=== PATIENT | male | born 1935 | race Caucasian/White ===

== ENCOUNTER → 2016-09-25 | Outpatient (CLI) | payer MEDICARE ==
[~2016-09-25] MED LIST: /WARF5TA OR; ACET65TA OR; ASPIRIN PO; CETI10TA OR; COREG PO; CRESTOR PO; GARLPOW PO; GLUC500T3 OR; KEFL500C OR; LEVOTHYROXINE PO; LISIPOW PO; MULTIVIT; NITROQUICK PO; TRAM50TA2 OR; TYLENOL PO; VITAMIN B 12 PO; VITAMIN B 6 PO
--- NOTE | 2016-09-25 14:18 | REP ---
Bilateral carotid artery duplex ultrasound: Peak flow velocity analysis: RIGHT LEFT ICA. Peak flow velocity cm/sec whole 40 occluded ICA Diastolic flow velocity cm/sec 48 occluded ICA/CCA Ratio 0.57 occluded. There is moderately heavy atheromatous plaque on the right from the bulb into the proximal ICA and ECA. However, peak flow velocities are normal. The findings indicate less than 50% narrowing. There is no significant stenosis on the right ICA. The left internal carotid artery is occluded. There is antegrade flow in the vertebral arteries bilaterally. Signed by Roberto Marin MD 09/25/2016 02:09 P
== END ==
LOC: M RAD 13:10
PROVIDERS: ATTEND Physician Assistant
DX: I65.22 Occlusion and stenosis of left carotid artery (principal)

== ENCOUNTER → 2019-10-23 | Outpatient (CLI) | payer MEDICARE ==
[~2019-10-23] MED LIST changes: -/WARF5TA OR; +COUM1TAB17 OR
--- NOTE | 2019-10-23 09:03 | REPVR ---
PROCEDURE INFORMATION: Exam: CT Head Without Contrast Exam date and time: 10/23/2019 8:43 AM Age: 84 years old Clinical indication: Altered mental status/memory loss; Additional info: Dementia TECHNIQUE: Imaging protocol: Computed tomography of the head without contrast. Radiation optimization: All CT scans at this facility use at least one of these dose optimization techniques: automated exposure control; mA and/or kV adjustment per patient size (includes targeted exams where dose is matched to clinical indication); or iterative reconstruction. COMPARISON: No relevant prior studies available. FINDINGS: Brain: There is moderate ill-defined patchy hypodensity within the bilateral cerebral periventricular white matter, consistent with chronic microvascular ischemic changes. There is moderate diffuse cerebral atrophy present, consistent with this patient's age. Ventricles: The ventricular system demonstrates moderate diffuse compensatory enlargement. Bones/joints: Unremarkable. No acute fracture. Sinuses: Visualized sinuses are unremarkable. No fluid levels. Mastoid air cells: Visualized mastoid air cells are well aerated. Soft tissues: Unremarkable. IMPRESSION: 1. No acute infarction, masses or hemorrhage is seen. No acute intracranial abnormality is identified. 2. Diffuse age-related cerebral atrophy and moderate chronic microvascular white matter ischemic changes, without evidence of an acute intracranial abnormality. 3. [place] Stroke Program Early CT Score (ASPECTS) = 10 Electronically signed by: Saturnino Cleveland On 10/23/2019 09:03:22 AM
== END ==
LOC: M RAD 08:30
PROVIDERS: ATTEND Psychiatry & Neurology Neurology
DX: G31.83 Neurocognitive disorder with Lewy bodies (principal); R41.3 Other amnesia; F02.80 Dementia in other diseases classified elsewhere, unspecified severity, without behavioral disturbance, psychotic disturbance, mood disturbance, and anxiety

== ENCOUNTER 2020-11-16 12:49 | Inpatient (IN) | payer MEDICARE ==
--- NOTE | 2020-11-16 13:29 | REP ---
INDICATION: Altered Mental Status. COMPARISON: Comparison study is from October 23, 2019. TECHNIQUE: Helical scanning is acquired. 5 mm axial images were reformatted. Coronal MPR images were generated. FINDINGS: Preliminary digital peanut butter maker radiograph is unremarkable. Bone window settings demonstrate intact bony calvarium. Visualized paranasal sinuses are clear. There is heavy vascular calcification in the distal internal carotid arteries bilaterally and some distal vertebral artery calcification is observed. No intraorbital abnormality is seen. On soft tissue window settings, there is generalized volume loss. Concordant ventricular enlargement is seen in these findings are unchanged from the October 23, 2019 study. There is extensive periventricular low-density in the supratentorial brain bilaterally consistent with fairly advanced small vessel changes. This is also unchanged from October 23, 2019 CT study. No new low-density areas seen. There is no evidence of acute infarction or intracranial hemorrhage. No extra-axial fluid collection or mass is seen. No midline shift is observed. IMPRESSION: Generalized volume loss, extensive vascular calcification and small vessel changes. No change from comparison study. No acute intracranial abnormality. <Electronically signed by Yuriy Morgan > 11/16/20 [id number]
--- NOTE | 2020-11-16 13:37 | REP ---
INDICATION: Altered Mental Status. COMPARISON: May 17, 2014. TECHNIQUE: Portable upright AP chest radiograph. FINDINGS: There is extensive calcific pleural plaquing noted bilaterally. This is present to such an extent that it could obscure a subtle infiltrate. No infiltrate is seen. Pleural plaquing appears unchanged. Pleural angles are sharp. There is a bipolar pacemaker in the right heart again noted. Median sternotomy wires are seen. The thoracic aorta is slightly tortuous. The heart is at the upper range of normal in size. Pulmonary vasculature does not appear to be increased. IMPRESSION: Borderline heart size with pacemaker. Extensive calcific pleural plaquing bilaterally consistent with prior asbestos exposure. No acute infiltrates seen. <Electronically signed by Yuriy Morgan > 11/16/20 [id number]
[2020-11-16 15:00] LABS: BASO % 0.3 % (0.0-1.0); EOS % 0.1 % (0.0-3.0); HEMATOCRIT 46.2 % (42.0-52.0); HEMOGLOBIN 15.4 g/dl (13.5-17.5); LYMPH # 1.8 10^3/uL (1.5-5.0); LYMPH % 17.1 % (24.0-44.0); MEAN CORPUSCULAR HEMOGLOBIN 31.9 pg (27.0-33.0); MEAN CORPUSCULAR HGB CONC 33.3 g/dl (32.0-36.5); MEAN CORPUSCULAR VOLUME 95.7 fl (80.0-96.0); MONO # 1.1 10^3/uL (0.0-0.8); MONO % 10.6 % (2.0-8.0); NEUTROPHILS # 7.4 10^3/uL (1.5-8.5); NEUTROPHILS % 71.5 % (36.0-66.0); PLATELET COUNT, AUTOMATED 145 10^3/uL (150-450); RED BLOOD COUNT 4.83 10^6/uL (4.30-6.10); WHITE BLOOD COUNT 10.3 10^3/uL (4.0-10.0)
[2020-11-16 15:38] LABS: ALBUMIN 3.3 GM/DL (3.2-5.2); ALT/SGPT 49 U/L (12-78); BILIRUBIN,DIRECT 0.1 MG/DL (0.0-0.2); BILIRUBIN,TOTAL 0.9 MG/DL (0.2-1.0); CK-MB VALUE MASS 1.7 NG/ML (<3.6); CPK CREATINE PHOSPHOKINASE 138 U/L (39-308); MB/CK RELATIVE INDEX 1.23 (< OR =4); TROPONIN I 0.15 NG/ML (< 0.10)
[2020-11-16] MEDS ORDERED: MECLIZINE 25 MG TABLET PO ONE (15:50)
[2020-11-16 16:28] LABS: BLOOD UREA NITROGEN 12 MG/DL (7-18); CALCIUM LEVEL 9.1 MG/DL (8.8-10.2); CARBON DIOXIDE LEVEL 21 MEQ/L (21-32); CHLORIDE LEVEL 107 MEQ/L (98-107); GLOMERULAR FILTRATION RATE > 60.0 (>35); GLUCOSE, FASTING 121 MG/DL (70-100); POTASSIUM SERUM 5.3 MEQ/L (3.5-5.1); SODIUM LEVEL 136 MEQ/L (136-145)
[2020-11-16 17:43] LABS: CK-MB VALUE MASS 2.2 NG/ML (<3.6); MB/CK RELATIVE INDEX 2.5 (< OR =4); TROPONIN I 0.16 NG/ML (< 0.10)
[2020-11-16] MEDS ORDERED: CARV25TA PO (18:29)
[2020-11-16] MEDS ORDERED: LEVO75TA4 PO (18:29)
[2020-11-16] MEDS ORDERED: ELIQ5TAB PO (18:29)
[2020-11-16] MEDS ORDERED: ROSU40TA4 PO (18:29)
[2020-11-16] MEDS ORDERED: COQ1200C PO (18:40)
[2020-11-16] MEDS ORDERED: VITMTA PO (18:40)
[2020-11-16] MEDS ORDERED: SODI3.5O3 OS (18:40)
[2020-11-16] MEDS ORDERED: PRES10CA2 PO (18:40)
[2020-11-16] MEDS ORDERED: ASPI81TA26 PO (18:40)
[2020-11-16] MEDS ORDERED: FAMO20TA PO (18:40)
[2020-11-16] MEDS ORDERED: CLAR10CA3 PO (18:40)
[2020-11-16] MEDS ORDERED: SM S160C PO (18:40)
[2020-11-16] MEDS ORDERED: NITR0.4S14 SL (18:40)
[2020-11-16] MEDS ORDERED: THIA100TA PO (18:40)
[2020-11-16] MEDS ORDERED: HOME MED LIST COMPLETE! XX SCH (18:45)
[2020-11-16] MEDS ORDERED: NITROGLYCERIN 0.4 MG SUBL TABLET SL PRN (19:25)
[2020-11-16] MEDS ORDERED: METOCLOPRAMIDE INJ 10MG/2ML VIAL (J2765 PER 1) IV PRN (19:40)
--- NOTE | 2020-11-16 19:44 | HPEPDOC ---
General Date of Admission November 16, 2020 Date of Service: Nov 16, 2020 Chief Complaint The patient is a 85-year-old male admitted with a reason for visit of N/V. History of Present Illness Mr. Rosales is an 85-year-old male with atrial fibrillation on Eliquis and dementia who presents with vertigo with nausea and vomiting. Patient has dementia and is a poor historian. was at bedside was able to give history. Patient has intermittent vertigo which resolves with rest. This morning around 8 AM, patient had vertigo that persisted. He was nauseous and vomited his breakfast. He continued to vomit mucus afterwards. did not know how many times he vomited, but more than 5 times. There is no blood in the vomit. Patient denied any shortness of breath or chest pain at home. He had sweating. called ambulance for evaluation. While in the ED, vital signs are stable. Heart rate 60 and he was saturating well at room air. CT head demonstrated vascular calcification and small vessel changes. Otherwise no acute intracranial abnormality. At the time, patient had no neurologic deficits. ED had physical therapy try to resolve the vertigo. They were not able to. They requested overnight admission with reevaluation in the morning. When I saw patient, he was hard of hearing. He denied any nausea at this time. He also denied any vertigo while resting in bed. He had trouble following instructions. When testing for [id number], he said that he can see my finger, we had trouble finding and touching my finger. He is able to touch his fingers together and touch his nose. tells me that his vision is poor and he cannot see vertically very well. He just saw the eye doctor yesterday. His right eye was strong but his left eye was weak. I reached out to neurology, . He may just have trouble with his vision and it may not be stroke. Recommended CT head in the morning. Patient will be placed in observation for vertigo with nausea. Home Medications Scheduled Apixaban (Eliquis) 5 Mg Tablet, 5 MG PO BID, (Reported) Aspirin (Aspirin EC) 81 Mg Tablet.dr 81 MG PO DAILY, (Reported) Carvedilol (Carvedilol) 25 Mg Tablet, 12.5 MG PO BID, (Reported) Famotidine (Famotidine) 20 Mg Tablet, 20 MG PO DAILY, (Reported) Levothyroxine Sodium (Levothyroxine Sodium) 75 Mcg Tablet, 75 MCG PO DAILY, (Reported) Loratadine (Claritin) 10 Mg Capsule, 10 MG PO DAILY, (Reported) Multivitamins (Thera M Plus Tablet) 1 Each Tablet, 1 TAB PO DAILY, (Reported) Rosuvastatin Calcium (Rosuvastatin Calcium) 40 Mg Tablet, 20 MG PO QHS, (Reported) Saw Madison (Saw Madison) 160 Mg Capsule, 160 MG PO DAILY, (Reported) Sodium Chloride (Sodium Chloride 5% Opth Oint) 3.5 Gm Oint...g., 1 APPLIC OS QHS, (Reported) Thiamine Hcl (Vitamin B-1) 100 Mg Tablet, 100 MG PO DAILY, (Reported) Ubidecarenone (Co Q-10) 200 Mg Capsule, 200 MG PO DAILY, (Reported) Vit C/E/Zn/Coppr/Lutein/Zeaxan (Preservision Areds 2 Softgel) 1 Each Capsule, 1 EACH PO BID, (Reported) Scheduled PRN Nitroglycerin (Nitroglycerin) 0.4 Mg Tab.subl, 0.4 MG SL ASDIRECTED PRN for CHEST PAIN, (Reported) Allergies Coded Allergies: ibuprofen (Verified Allergy, Unknown, PT TAKES ASPIRIN AT HOME WITH NO SIDE EFFECTS, 11/16/20) Past Medical History Medical History 1. Hypertension 2. Atrial fibrillation on Eliquis 3. Asbestosis 4. CAD status post CABG x2 and stent 5. Left eye disease 6. Dementia 7. Hypothyroidism Surgical History 1. CABG x2 and stent 2. Hip surgery 3. Pacemaker and AICD placement Family History Father: from heart disease Mother: from cancer Social History * Smoker: former Smoker Alcohol: Denies Drugs: denies A-FIB/CHADSVASC A-FIB History Current/History of A-Fib/PAF?: Yes Current PO Anticoag Therapy: Yes Review of Systems Constitutional: Denies: Chills, Fever Eyes: Reports: Other (Saw eye doctor yesterday. Vision worsen left eye.) ENT: Denies: Sore Throat Skin: Denies: Rash Pulmonary: Denies: Dyspnea, Cough Cardiovascular: Denies: Chest Pain Gastrointestinal: Denies: Nausea, Abdominal Pain, Diarrhea Genitourinary: Denies: Dysuria Hematologic: Denies: Bruising Neurological: Denies: Numbness Psych: Denies: Anxiety, Depression Physical Examination General Exam: Positive: Alert Eye Exam: Negative: Sclera icteric ENT Exam: Positive: Other ENT (Hard of hearing) Neck Exam: Positive: Supple Chest Exam: Positive: Clear to auscultation; Negative: Rales, Rhonchi, Wheezing Heart Exam: Positive: Rate Normal, Regular Rhythm Abdomen Exam: Positive: Normal bowel sounds, Soft; Negative: Tenderness Extremity Exam: Negative: Edema Neuro Exam: Positive: Other (Had difficulty with finding my finger. Is able to touch his fingers together and touch his nose. Had trouble following instructions.) Psych Exam: Positive: Mood NL Vital Signs Vital Signs Date Time Temp Pulse Resp B/P (MAP) Pulse Ox O2 Delivery O2 Flow Rate FiO2 11/16/20 18:45 60 133/60 (84) 98 Room Air 11/16/20 17:45 97.0 16 Laboratory Data Labs 24H Laboratory Tests 2 11/16/20 14:50: Immature Granulocyte % (Auto) 0.4, Neutrophils (%) (Auto) 71.5H, Lymphocytes (%) (Auto) 17.1L, Monocytes (%) (Auto) 10.6H, Eosinophils (%) (Auto) 0.1, Basophils (%) (Auto) 0.3, Neutrophils # (Auto) 7.4, Lymphocytes # (Auto) 1.8, Monocytes # (Auto) 1.1H, Eosinophils # (Auto) 0.0, Basophils # (Auto) 0.0, Nucleated Red Blood Cells % (auto) 0.0, Anion Gap 8, Glomerular Filtration Rate > 60.0, Lactic Acid Level 1.6, Calcium Level 9.1, Total Bilirubin 0.9, Direct Bilirubin 0.1, Aspartate Amino Transf (AST/SGOT) 56H, Alanine Aminotransferase (ALT/SGPT) 49, Alkaline Phosphatase 66, Ammonia 42H, Total Creatine Kinase 138, Creatine Kinase MB 1.7, Creatine Kinase MB Relative Index 1.23, Troponin I 0.15H, Total Protein 7.0, Albumin 3.3, Albumin/Globulin Ratio 0.9, Thyroid Stimulating Hormone (TSH) 2.240 11/16/20 16:52: Total Creatine Kinase 88, Creatine Kinase MB 2.2, Creatine Kinase MB Relative Index 2.50, Troponin I 0.16H 11/16/20 18:43: CBC/BMP Laboratory Tests 11/16/20 14:50 Assessment/Plan Mr. Rosales is an 85-year-old male with atrial fibrillation on Eliquis and dementia who presents with vertigo with nausea and vomiting. This is most likely peripheral vertigo. Will place patient in observation overnight and have physical therapy reevaluate patient in the morning. Continue meclizine. We will repeat CT head in the morning. Plan / VTE VTE Prophylaxis Ordered?: Yes Plan Plan 1. Peripheral vertigo We will have physical therapy reevaluate in the morning Continue meclizine 2. Nausea secondary to vertigo Per patient nausea has resolved As needed Reglan since patient has prolonged QTC 3. Atrial fibrillation status post pacemaker and AICD Continue Eliquis Continue Coreg 4. CAD status post CABG and stent Continue aspirin, Coreg, sublingual nitro as needed, and Crestor No active chest pain 5. Hypothyroidism Continue levothyroxine 6. GERD Continue famotidine 7. DVT prophylaxis Eliquis Disposition: Pending improvement in symptoms LACI YEUNG DO Nov 16, 2020 19:44
[2020-11-16 20:16] LABS: RSV AMPLIFICATION NEGATIVE (NEGATIVE)
[2020-11-16] MEDS: SODIUM CHLORIDE 5% OPHTH OINT 3.5 GM OS SCH (21:00)
[2020-11-16] MEDS ORDERED: APIXABAN 5 MG TAB (ELIQUIS) PO SCH (21:00)
[2020-11-16 22:15] VITALS: BP 167/77
[2020-11-16] MEDS: MECLIZINE 25 MG TABLET PO SCH (22:38)
[2020-11-16] MEDS: ROSUVASTATIN 10 MG TAB (CRESTOR) PO SCH (22:39)
[2020-11-16] MEDS: CARVedilol 12.5 MG TAB PO SCH (22:40)
[2020-11-16 23:13] LABS: BLOOD UREA NITROGEN 10 MG/DL (7-18); CALCIUM LEVEL 9.2 MG/DL (8.8-10.2); CARBON DIOXIDE LEVEL 30 MEQ/L (21-32); CHLORIDE LEVEL 106 MEQ/L (98-107); GLOMERULAR FILTRATION RATE > 60.0 (>35); GLUCOSE, FASTING 117 MG/DL (70-100); POTASSIUM SERUM 3.7 MEQ/L (3.5-5.1); SODIUM LEVEL 139 MEQ/L (136-145); TROPONIN I 0.54 NG/ML (< 0.10)
[2020-11-16] MEDS: RAMELTEON 8 MG TAB (ROZEREM) PO PRN (23:39)
[2020-11-17] MEDS ORDERED: CLOPIDOGREL 300 MG TAB (PLAVIX) PO STA (00:51)
--- NOTE | 2020-11-17 00:55 | IPNPDOC ---
Text Note Date of Service The patient was seen on 11/17/20. NOTE TIME OF SERVICE 1252AM I was informed by the patient's RN that the patient's troponin has increased At the time of my assessment the pt denied having chest pain. He knew that it was Sunday and the month was November but it took him some time to answer questions about the date EKG V paced rhythm with PACs and aberrant conduction #Elevated Troponin Possibly Type 2 NSTEMI? Plan: telemetry / c/w ASA/ start Plavix / hold Eliquis / pending repeat Troponin will call Cardio in the morning to discuss starting Lovenox (can be administered 12H after last dose of DOAC) # Hyperammonemia Possibly 2/2 Hepatic Encephalopathy due to fatty liver. He also has a pre-existing diagnosis of dementia Plan: lactulose / f/u liver US and Hepatitis panel VS,Fishbone, I+O VS, Fishbone, I+O Laboratory Tests 11/16/20 14:50 11/16/20 22:34 Vital Signs Date Time Temp Pulse Resp B/P (MAP) Pulse Ox O2 Delivery O2 Flow Rate FiO2 11/16/20 22:40 70 167/77 11/16/20 22:15 98.0 20 90 Room Air I&O- Last 24 Hours up to 6 AM 11/17/20 06:00 Intake Total 0 ml Output Total 400 ml Balance -400 ml DEEDEE GARBER MD Nov 17, 2020 00:54
[2020-11-17] MEDS ORDERED: LACTULOSE 20 GM/30 ML SYRUP UD PO ONE (01:10)
[2020-11-17 01:47] LABS: CHOLESTEROL LEVEL 122 MG/DL (<200); CHOLESTEROL RISK RATIO 2.904 (<5); HDL CHOLESTEROL 42 MG/DL (>40); LDL CHOLESTEROL 66 MG/DL (<100); NON-HDL-C 80 MG/DL; TRIGLYCERIDES LEVEL 70 MG/DL (<150)
[2020-11-17] MEDS: LEVOTHYROXINE 75MCG TABLET (0.075MG) PO SCH (05:54)
[2020-11-17 06:00] VITALS: BP 100/66
[2020-11-17 06:50] LABS: HEMATOCRIT 41.3 % (42.0-52.0); HEMOGLOBIN 14.1 g/dl (13.5-17.5); MEAN CORPUSCULAR HEMOGLOBIN 32.3 pg (27.0-33.0); MEAN CORPUSCULAR HGB CONC 34.1 g/dl (32.0-36.5); MEAN CORPUSCULAR VOLUME 94.7 fl (80.0-96.0); PLATELET COUNT, AUTOMATED 158 10^3/uL (150-450); RED BLOOD COUNT 4.36 10^6/uL (4.30-6.10); WHITE BLOOD COUNT 7.9 10^3/uL (4.0-10.0)
[2020-11-17 07:01] LABS: INR 1.28; PROTHROMBIN TIME 16.4 SECONDS (12.7-14.5)
[2020-11-17 07:02] LABS: PARTIAL THROMBOPLASTIN TIME 36.8 SECONDS (25.9-37.0)
[2020-11-17 07:42] LABS: HEMOGLOBIN A1c 5.2 %
--- NOTE | 2020-11-17 08:26 | REP ---
INDICATION: confusion / elevated ammonia / elevated LFTs COMPARISON: None. TECHNIQUE: Real time clemens scale ultrasound examination using curved array transducer. FINDINGS: Liver is normal in contour, size, and echogenicity without focal hepatic lesions identified. Pancreas is incompletely evaluated due to interposed bowel gas. The gallbladder demonstrates mobile gallstones without wall thickening or pericholecystic fluid. No biliary ductal dilatation is appreciated and the common bile duct measures 4.0 mm diameter. Right kidney is normal in reniform shape without hydronephrosis and measures 11.2 x 5.5 x 4.8 cm. No ascites in the visualized right upper quadrant. IMPRESSION: Cholelithiasis. <Electronically signed by Romero Lyman > 11/17/20 [id number]
[2020-11-17] MEDS: MULTIVITAMINS/MINERALS THERAP 1 TAB PO SCH (08:41)
[2020-11-17] MEDS: FAMOTIDINE 20 MG TAB PO SCH (08:41)
[2020-11-17] MEDS: ASPIRIN 81MG ENTERIC TABLET PO SCH (08:41)
[2020-11-17] MEDS: MECLIZINE 25 MG TABLET PO SCH ×4 (08:41→21:02)
[2020-11-17 08:42] LABS: BLOOD UREA NITROGEN 11 MG/DL (7-18); CALCIUM LEVEL 8.9 MG/DL (8.8-10.2); CARBON DIOXIDE LEVEL 29 MEQ/L (21-32); CHLORIDE LEVEL 107 MEQ/L (98-107); CREATININE FOR GFR 0.66 MG/DL (0.70-1.30); GLOMERULAR FILTRATION RATE > 60.0 (>35); GLUCOSE, FASTING 75 MG/DL (70-100); MAGNESIUM LEVEL 1.9 MG/DL (1.8-2.4); POTASSIUM SERUM 3.7 MEQ/L (3.5-5.1); SODIUM LEVEL 142 MEQ/L (136-145); TROPONIN I 1.04 NG/ML (< 0.10)
[2020-11-17] MEDS: LORATADINE 10 MG TAB PO SCH (08:42)
[2020-11-17] MEDS: THIAMINE 100 MG TAB PO SCH (08:42)
[2020-11-17] MEDS: CARVedilol 12.5 MG TAB PO SCH ×2 (08:42→21:02)
--- NOTE | 2020-11-17 09:50 | REPVR ---
PROCEDURE INFORMATION: Exam: CT Head Without Contrast Exam date and time: 11/17/2020 9:28 AM Age: 85 years old Clinical indication: Syncope and collapse. TECHNIQUE: Imaging protocol: Computed tomography of the head without contrast. Radiation optimization: All CT scans at this facility use at least one of these dose optimization techniques: automated exposure control; mA and/or kV adjustment per patient size (includes targeted exams where dose is matched to clinical indication); or iterative reconstruction. COMPARISON: CT Head without contrast 11/16/2020 1:08 PM FINDINGS: Brain: There is extensive low attenuation abnormality in the periventricular white matter consistent with chronic microvascular ischemic changes. There are chronic brainstem ischemic changes. There are chronic lacunar infarcts. There is moderate cerebral and cerebellar atrophy. Cerebral ventricles: No ventriculomegaly. Paranasal sinuses: Visualized sinuses are unremarkable. No fluid levels. Mastoid air cells: Visualized mastoid air cells are well aerated. Vasculature: There is moderate intracranial vascular calcification. Bones/joints: Unremarkable. No acute fracture. Soft tissues: Unremarkable. IMPRESSION: 1. There is extensive low attenuation abnormality in the periventricular white matter consistent with chronic microvascular ischemic changes. If an acute infarct is a clinical concern, follow-up MRI with diffusion imaging is recommended. 2. There are chronic brainstem ischemic changes. 3. There are chronic lacunar infarcts. 4. There is moderate cerebral and cerebellar atrophy. Electronically signed by: Wenceslao Pizano On 11/17/2020 09:49:55 AM
[2020-11-17 10:20] LABS: HEPATITIS B SURFACE ANTIGEN NEGATIVE (NEGATIVE)
[2020-11-17 10:47] LABS: HEPATITIS B CORE ANTIBODY IGM NEGATIVE (NEGATIVE)
[2020-11-17 10:50] LABS: TROPONIN I 1.09 NG/ML (< 0.10)
[2020-11-17 10:50] LABS: HEPATITIS A ANTIBODY IGM NEGATIVE (NEGATIVE)
--- NOTE | 2020-11-17 13:58 | ECGEPIP ---
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 No significant change compared with 11/16/2020. Electronically Signed on 11-17-2020 13:58:07 EDT by David Franco
[2020-11-17 14:00] VITALS: BP 113/60
--- NOTE | 2020-11-17 14:10 | ECGEPIP ---
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
--- NOTE | 2020-11-17 15:23 | ECHO ---
ECHOCARDIOGRAM DATE OF PROCEDURE: 11/17/2020 Age: Gender: Male Height: 147 cm Weight: 76 kg REFERRING PHYSICIAN: Alesha Henry M.D. INDICATION: Chest pain, unspecified. MEASUREMENTS: 2D Measurements: LVOT 2.1 cm Left ventricle diastole 5.0 cm Left ventricle systole 5.0 cm Intraventricular septum 1.00 cm Posterior wall 1.11 cm Aortic root 3.7 cm Left atrium 4.7 cm Left atrial volume index 38 Doppler Measurements: No aortic stenosis No aortic regurgitation Aortic valve velocity 235 cm/sec LVOT velocity 78.3 cm/sec Very mild mitral regurgitation Mitral E velocity 41.6 cm/sec Mitral A velocity 112 cm/sec Trace tricuspid regurgitation No pulmonic regurgitation MITRAL ANNULAR TISSUE DOPPLER: E prime septal 5.4 cm/sec E prime lateral 5.2 cm/sec DESCRIPTION: Rhythm was sinus, d-synchronous biventricular paced rhythm. Image quality was fair. No pericardial effusion. Technically difficult subcostal window and suprasternal notch window. CONCLUSIONS: 1. Left ventricle was mildly dilated at end-diastole and was moderately dilated at end-systole. Normal left ventricular (LV) wall thickness. Dyskinesis of the basal inferior and basal inferolateral segments. Mid-inferolateral segment was akinetic. The apical cap segment, apical-anterior, apical-septal and apical-lateral segments were akinetic. Akinesis of the basal and mid anterolateral segments. Moderate hypokinesis of the mid-anterior, mid-anteroseptal and mid-inferoseptal segments. Normal kinesis of the basal anterior, basal anteroseptal and basal inferoseptal LV segments. No LV thrombus. Severe reduction of LV systolic function. Left ventricular ejection fraction (LVEF) of 25% by visual assessment. Grade 1 LV diastolic dysfunction (impaired relaxation filling pattern). 2. Normal right ventricle size and systolic function. 3. Moderate left atrial dilatation by left atrial volume index. 4. Presence of endocardial biatrial pacing lead, right ventricle automatic implantable cardioverter-defibrillator (AICD) and coronary sinus LV pacing lead. 5. Mild-moderate aortic valve sclerosis of a 3-cusp aortic valve. No aortic regurgitation or stenosis. 6. Mild mitral annular calcification. Very mild mitral regurgitation. 7. Normal right ventricle size and systolic function. 8. No pericardial effusion.
--- NOTE | 2020-11-17 15:28 | IPNPDOC ---
Subjective Date Seen The patient was seen on 11/17/20. Subjective Chief Complaint/HPI Mr. Rosales is an 85-year-old male with atrial fibrillation on Eliquis and dementia who presents with vertigo with nausea and vomiting. Overnight, patient troponin increased from 0.16 to 0.54. Troponin increased again this morning to 1.04. Echocardiogram was obtained, pending results. CT head negative, ultrasound liver negative, and hepatitis panel negative. When I spoke to patient, he denies any chest pain or shortness of breath. Also denies any dizziness or nausea. I reached out to cardiology, Dr. Franco. He reviewed the patient's outpatient records. I discussed the rising troponin. Cardiology told me that he may have chronically elevated troponins that may periodically increase. He would not recommend any intervention at this time, especially since he does not have any symptoms. I also let him know about the echocardiog abida. Cardiology told me that his prior echocardiogram does demonstrate inferior hypokinesis. Pending read of new echocardiogram. Objective Physical Examination General Exam: Positive: Alert Eye Exam: Negative: Sclera icteric ENT Exam: Positive: Other ENT (Hard of hearing) Neck Exam: Positive: Supple Chest Exam: Positive: Clear to auscultation; Negative: Rales, Rhonchi, Wheezing Heart Exam: Positive: Rate Normal, Regular Rhythm Abdomen Exam: Positive: Normal bowel sounds, Soft; Negative: Tenderness Extremity Exam: Negative: Edema Neuro Exam: Positive: Other (Had difficulty with finding my finger. Is able to touch his fingers together and touch his nose. Had trouble following instructions.) Psych Exam: Positive: Mood NL Assessment /Plan Assessment Mr. Rosales is an 85-year-old male with atrial fibrillation on Eliquis and dementia who presents with vertigo with nausea and vomiting. This is most likely peripheral vertigo. We will continue with PT and OT. Otherwise patient had troponins that were elevated. Discussed case with cardiology. As long as patient does not have any symptoms, monitor at this time. No further intervention recommended. I requested cardiology to review echocardiogram. Plan/VTE VTE Prophylaxis Ordered?: Yes Plan 1. Peripheral vertigo Continue PT and OT Continue meclizine 2. Nausea secondary to vertigo Per patient nausea has resolved As needed Reglan since patient has prolonged QTC 3. NSTEMI Patient follows with Dr. Jurado's and Dr. Gray's office. Discussed case with Dr. Jurado As patient is asymptomatic, do not recommend any further interventions Pending echocardiogram results 4. Atrial fibrillation status post pacemaker and AICD Continue Eliquis Continue Coreg 5. CAD status post CABG and stent Continue aspirin, Coreg, sublingual nitro as needed, and Crestor No active chest pain 6. Hypothyroidism Continue levothyroxine 7. GERD Continue famotidine 8. DVT prophylaxis Eliquis Disposition: Pending echocardiogram. Pending PT evaluation. OT recommending rehab VS, I&O, 24H, Fishbone Vital Signs/I&O Vital Signs Date Time Temp Pulse Resp B/P (MAP) Pulse Ox O2 Delivery O2 Flow Rate FiO2 11/17/20 14:00 97.5 66 16 97 Room Air 113.0 60 11/17/20 08:42 111/63 I&O- Last 24 Hours up to 6 AM 11/17/20 05:59 Intake Total 0 ml Output Total 400 ml Balance -400 ml Laboratory Data 24H LABS Laboratory Tests 2 11/16/20 16:52: Total Creatine Kinase 88, Creatine Kinase MB 2.2, Creatine Kinase MB Relative Index 2.50, Troponin I 0.16H 11/16/20 18:43: Coronavirus (COVID-19)(PCR) NEGATIVE, Influenza Type A (RT-PCR) NEGATIVE, Influenza Type B (RT-PCR) NEGATIVE, Respiratory Syncytial Virus (PCR) NEGATIVE 11/16/20 22:34: Troponin I 0.54#H, Anion Gap 3L, Glomerular Filtration Rate > 60.0, Calcium Level 9.2, Triglycerides Level 70, Total Cholesterol 122, LDL Cholesterol 66, Non-HDL Cholesterol (LDL + VLDL) 80, Total HDL Cholesterol 42, Cholesterol/HDL Ratio 2.904 11/17/20 05:36: Troponin I 1.04#H, Anion Gap 6L, Glomerular Filtration Rate > 60.0, Calcium Level 8.9, Nucleated Red Blood Cells % (auto) 0.0, Prothrombin Time 16.4H, Prothromb Time International Ratio 1.28, Activated Partial Thromboplast Time 36.8, Estimated Mean Plasma Glucose 103, Hemoglobin A1c 5.2, Magnesium Level 1.9, Hepatitis A IgM Antibody NEGATIVE, Hepatitis B Surface Antigen NEGATIVE, Hepatitis B Core IgM Antibody NEGATIVE, Hepatitis C Antibody Index 0.0 11/17/20 10:01: Troponin I 1.09H 11/17/20 12:01: Troponin I 1.11H CBC/BMP Laboratory Tests 11/16/20 22:34 11/17/20 05:36 LACI YEUNG DO Nov 17, 2020 15:28
--- NOTE | 2020-11-17 17:34 | ECGEPIP ---
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
[2020-11-17 19:11] LABS: BLOOD UREA NITROGEN 11 MG/DL (7-18); CALCIUM LEVEL 9.1 MG/DL (8.8-10.2); CARBON DIOXIDE LEVEL 28 MEQ/L (21-32); CHLORIDE LEVEL 108 MEQ/L (98-107); CREATININE FOR GFR 0.74 MG/DL (0.70-1.30); GLOMERULAR FILTRATION RATE > 60.0 (>35); GLUCOSE, FASTING 110 MG/DL (70-100); MAGNESIUM LEVEL 1.8 MG/DL (1.8-2.4); POTASSIUM SERUM 3.9 MEQ/L (3.5-5.1); SODIUM LEVEL 138 MEQ/L (136-145)
[2020-11-17 19:52] VITALS: BP 138/65
[2020-11-17] MEDS: ROSUVASTATIN 10 MG TAB (CRESTOR) PO SCH (21:01)
[2020-11-17] MEDS: RAMELTEON 8 MG TAB (ROZEREM) PO PRN (21:01)
[2020-11-17] MEDS: SODIUM CHLORIDE 5% OPHTH OINT 3.5 GM OS SCH (21:02)
[2020-11-17] MEDS: APIXABAN 5 MG TAB (ELIQUIS) PO SCH (21:02)
[2020-11-18] MEDS: LEVOTHYROXINE 75MCG TABLET (0.075MG) PO SCH (05:38)
[2020-11-18 06:00] VITALS: BP 145/69
[2020-11-18 06:04] LABS: HEMATOCRIT 44.4 % (42.0-52.0); HEMOGLOBIN 14.8 g/dl (13.5-17.5); MEAN CORPUSCULAR HEMOGLOBIN 31.6 pg (27.0-33.0); MEAN CORPUSCULAR HGB CONC 33.3 g/dl (32.0-36.5); MEAN CORPUSCULAR VOLUME 94.9 fl (80.0-96.0); PLATELET COUNT, AUTOMATED 161 10^3/uL (150-450); RED BLOOD COUNT 4.68 10^6/uL (4.30-6.10); WHITE BLOOD COUNT 8.5 10^3/uL (4.0-10.0)
[2020-11-18 06:25] LABS: BLOOD UREA NITROGEN 13 MG/DL (7-18); CALCIUM LEVEL 8.8 MG/DL (8.8-10.2); CARBON DIOXIDE LEVEL 29 MEQ/L (21-32); CHLORIDE LEVEL 106 MEQ/L (98-107); CREATININE FOR GFR 0.85 MG/DL (0.70-1.30); GLOMERULAR FILTRATION RATE > 60.0 (>35); GLUCOSE, FASTING 91 MG/DL (70-100); POTASSIUM SERUM 3.8 MEQ/L (3.5-5.1); SODIUM LEVEL 142 MEQ/L (136-145)
[2020-11-18 08:00] VITALS: BP 124/86
[2020-11-18] MEDS: THIAMINE 100 MG TAB PO SCH (08:27)
[2020-11-18] MEDS: MULTIVITAMINS/MINERALS THERAP 1 TAB PO SCH (08:27)
[2020-11-18] MEDS: LORATADINE 10 MG TAB PO SCH (08:27)
[2020-11-18] MEDS: FAMOTIDINE 20 MG TAB PO SCH (08:27)
[2020-11-18] MEDS: ASPIRIN 81MG ENTERIC TABLET PO SCH (08:27)
[2020-11-18] MEDS: APIXABAN 5 MG TAB (ELIQUIS) PO SCH (08:27)
[2020-11-18] MEDS: MECLIZINE 25 MG TABLET PO SCH ×3 (08:27→13:00)
[2020-11-18 08:32] VITALS: BP 124/86
[2020-11-18] MEDS: CARVedilol 12.5 MG TAB PO SCH (08:32)
--- NOTE | 2020-11-18 17:31 | DS.PDOC ---
Discharge Summary General Date of Admission Nov 16, 2020 at 12:50 Date of Discharge Nov 18, 2020 Discharge Summary PROCEDURES PERFORMED DURING STAY: None ADMITTING DIAGNOSES: 1. Peripheral vertigo 2. Atrial fibrillation status post pacemaker and AICD 3. Stable heart failure with reduced ejection fraction 4. CAD status post CABG and stent 5. Hypothyroidism 6. GERD DISCHARGE DIAGNOSES: 1. Peripheral vertigo 2. Atrial fibrillation status post pacemaker and AICD 3. Stable heart failure with reduced ejection fraction 4. CAD status post CABG and stent 5. Hypothyroidism 6. GERD 7. NSTEMI due to demand ischemia COMPLICATIONS/CHIEF COMPLAINT: Vertigo. HISTORY OF PRESENT ILLNESS: Mr. Rosales is an 85-year-old male with atrial fibrillation on Eliquis and dementia who presents with vertigo with nausea and vomiting. Patient has dementia and is a poor historian. was at bedside was able to give history. Patient has intermittent vertigo which resolves with rest. This morning around 8 AM, patient had vertigo that persisted. He was nauseous and vomited his breakfast. He continued to vomit mucus afterwards. did not know how many times he vomited, but more than 5 times. There is no blood in the vomit. Patient denied any shortness of breath or chest pain at home. He had sweating. called ambulance for evaluation. While in the ED, vital signs are stable. Heart rate 60 and he was saturating well at room air. CT head demonstrated vascular calcification and small vessel changes. Otherwise no acute intracranial abnormality. At the time, patient had no neurologic deficits. ED had physical therapy try to resolve the vertigo. They were not able to. They requested overnight admission with reevaluation in the morning. When I saw patient, he was hard of hearing. He denied any nausea at this time. He also denied any vertigo while resting in bed. He had trouble following instructions. When testing for [id number], he said that he can see my finger, we had trouble finding and touching my finger. He is able to touch his fingers together and touch his nose. tells me that his vision is poor and he cannot see vertically very well. He just saw the eye doctor yesterday. His right eye was strong but his left eye was weak. I reached out to neurology, Dr. Lemons. He may just have trouble with his vision and it may not be stroke. Recommended CT head in the morning. Patient will be placed in observation for vertigo with nausea. HOSPITAL COURSE: Patient did well during hospitalization. Repeat CT head was negative. Patient denied any dizziness and nausea did not return. Patient did have a slow increase in troponin but no chest pain. Troponins peaked at 1.11. Echocardiogram was obtained and I discussed the case with Dr. Jurado. Since there were no symptoms, cardiology did not recommend any intervention at this time. Dr. Franco could see patient's old echocardiograms and tells me that his hypokinesis is not new and the EF is similar to prior echocardiogram. No further work-up needed at this time. Today patient felt well. Denied any nausea, dizziness, chest pain, or shortness of breath. He did well with physical therapy. He felt ready for home and was subsequently discharged home. DISCHARGE MEDICATIONS: Please see below. ALLERGIES: Please see below. PHYSICAL EXAMINATION ON DISCHARGE: VITAL SIGNS: Please see below. GENERAL: Comfortable, in no apparent distress. HEENT: Hard of hearing. NECK: Supple. RESPIRATORY: Lungs clear to auscultation bilaterally, no rales, wheeze or rhonchi. CARDIOVASCULAR: Regular rate and rhythm. ABDOMEN: Soft, nontender, no guarding or rebound tenderness. Normal bowel sounds. MUSCLE SKELETAL: No pitting edema PSYCHOLOGICAL: Normal mood and affect LABORATORY DATA: Please see below. IMAGING: Radiologist interpretation CT head on admission Generalized volume loss, extensive vascular calcification and small vessel changes. No change from comparison study. No acute intracranial abnormality. Repeat CT head 1. There is extensive low attenuation abnormality in the periventricular white matter consistent with chronic microvascular ischemic changes. If an acute infarct is a clinical concern, follow-up MRI with diffusion imaging is recommended. 2. There are chronic brainstem ischemic changes. 3. There are chronic lacunar infarcts. 4. There is moderate cerebral and cerebellar atrophy. Chest x-ray Borderline heart size with pacemaker. Extensive calcific pleural plaquing bilaterally consistent with prior asbestos exposure. No acute infiltrates seen. Liver ultrasound Cholelithiasis. PROGNOSIS: Good ACTIVITY: As tolerated. DIET: As tolerated DISCHARGE PLAN: Home with home health services DISPOSITION: Home Health Service. DISCHARGE INSTRUCTIONS: 1. Follow-up with PCP in 1 week. 2. Follow-up with cardiology in 1 to 2 weeks DISCHARGE CONDITION: Stable Total time spent on discharge planning, discharge summary, and medication reconciliation: 35 minutes Vital Signs/I&Os Vital Signs Date Time Temp Pulse Resp B/P (MAP) Pulse Ox O2 Delivery O2 Flow Rate FiO2 11/18/20 08:32 72 124/86 11/18/20 08:00 98.7 18 100 Room Air 11/17/20 14:00 I&O- Last 24 Hours up to 6 AM 11/18/20 06:00 Intake Total 660 ml Output Total 625 ml Balance 35 ml Laboratory Data Labs 24H Laboratory Tests 2 11/17/20 18:03: Troponin I 1.03H 11/18/20 05:48: Nucleated Red Blood Cells % (auto) 0.0, Anion Gap 7L, Glomerular Filtration Rate > 60.0, Calcium Level 8.8 CBC/BMP Laboratory Tests 11/18/20 05:48 Discharge Medications Scheduled Apixaban (Eliquis) 5 Mg Tablet, 5 MG PO BID, (Reported) Aspirin (Aspirin EC) 81 Mg Tablet.dr, 81 MG PO DAILY, (Reported) Carvedilol (Carvedilol) 25 Mg Tablet, 12.5 MG PO BID, (Reported) Famotidine (Famotidine) 20 Mg Tablet, 20 MG PO DAILY, (Reported) Levothyroxine Sodium (Levothyroxine Sodium) 75 Mcg Tablet, 75 MCG PO DAILY, (Reported) Loratadine (Claritin) 10 Mg Capsule, 10 MG PO DAILY, (Reported) Multivitamins (Thera M Plus Tablet) 1 Each Tablet, 1 TAB PO DAILY, (Reported) Rosuvastatin Calcium (Rosuvastatin Calcium) 40 Mg Tablet, 20 MG PO QHS, (Reported) Saw [place] (Saw [place]) 160 Mg Capsule, 160 MG PO DAILY, (Reported) Sodium Chloride (Sodium Chloride 5% Opth Oint) 3.5 Gm Oint...g., 1 APPLIC OS QHS, (Reported) Thiamine Hcl (Vitamin B-1) 100 Mg Tablet, 100 MG PO DAILY, (Reported) Ubidecarenone (Co Q-10) 200 Mg Capsule, 200 MG PO DAILY, (Reported) Vit C/E/Zn/Coppr/Lutein/Zeaxan (Preservision Areds 2 Softgel) 1 Each Capsule, 1 EACH PO BID, (Reported) Scheduled PRN Nitroglycerin (Nitroglycerin) 0.4 Mg Tab.subl, 0.4 MG SL ASDIRECTED PRN for CHEST PAIN, (Reported) Allergies Coded Allergies: ibuprofen (Verified Allergy, Unknown, PT TAKES ASPIRIN AT HOME WITH NO SIDE EFFECTS, 11/16/20) LACI YEUNG DO Nov 18, 2020 17:31
== END 2020-11-18 14:00 | disposition home health service (06) | DRG 149 ==
LOC: M ED 12:49 → M ED INP 12:50 → UNDOADMOB 12:50 → ENRESERV 20:52 → M MSPAV 22:08 → OBSVTOIN 11-18 09:54 → UNDODISOB 11-18 14:00
PROVIDERS: ADMIT Internal Medicine; ATTEND Internal Medicine
DX: H81.399 Other peripheral vertigo, unspecified ear (principal); I21.4 Non-ST elevation (NSTEMI) myocardial infarction; I50.32 Chronic diastolic (congestive) heart failure; I11.0 Hypertensive heart disease with heart failure; I48.91 Unspecified atrial fibrillation; I25.10 Atherosclerotic heart disease of native coronary artery without angina pectoris; F03.90 Unspecified dementia, unspecified severity, without behavioral disturbance, psychotic disturbance, mood disturbance, and anxiety; K21.9 Gastro-esophageal reflux disease without esophagitis; R11.2 Nausea with vomiting, unspecified; E03.9 Hypothyroidism, unspecified; H91.93 Unspecified hearing loss, bilateral; Z95.0 Presence of cardiac pacemaker; Z95.5 Presence of coronary angioplasty implant and graft; Z79.82 Long term (current) use of aspirin; Z79.01 Long term (current) use of anticoagulants; Z79.899 Other long term (current) drug therapy; Z88.6 Allergy status to analgesic agent

== ENCOUNTER → 2020-11-25 | Outpatient (CLI) | payer MEDICARE ==
[~2020-11-25] MED LIST changes: +ASPI81TA26 PO; +CARV25TA PO; +CLAR10CA3 PO; +COQ1200C PO; +ELIQ5TAB PO; +FAMO20TA PO; +LEVO75TA4 PO; +NITR0.4S14 SL; +PRES10CA2 PO; +ROSU40TA4 PO; +SM S160C PO; +SODI3.5O3 OS; +THIA100TA PO; +VITMTA PO
== END ==
LOC: M LABSMTC 10:39
PROVIDERS: ATTEND Pediatrics
DX: Z11.52 Encounter for screening for COVID-19 (principal)
CPT/HCPCS: C9803; U0003

== ENCOUNTER → 2020-11-29 | Outpatient (CLI) | payer MEDICARE ==
--- NOTE | 2020-11-29 15:39 | REP ---
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 COMPARISON: Multiple the latest 11/16/2020 TECHNIQUE: Two views FINDINGS: The cardiomediastinal silhouette is unchanged. The dual chamber bipolar pacemaker device is unchanged. The lung irvin are unchanged. Heavily calcified pleural plaquing is again seen bilaterally. No acute patchy parenchymal opacities or pleural effusions seem to have developed. IMPRESSION: Chronic stable appearing lung changes. <Electronically signed by Poncho Martinez > 11/29/20 [id number]
== END ==
LOC: M PLAIMG 11:55
PROVIDERS: ATTEND Internal Medicine Pulmonary Disease
DX: J61 Pneumoconiosis due to asbestos and other mineral fibers (principal)

== ENCOUNTER → 2021-07-20 | Outpatient (CLI) | payer MEDICARE ==
[~2021-07-20] MED LIST changes: +RA S160C PO; -SM S160C PO
== END ==
LOC: M WUC 13:09
PROVIDERS: ATTEND Physician Assistant
DX: M25.521 Pain in right elbow (principal)

== ENCOUNTER → 2021-12-10 | Outpatient (CLI) | payer MEDICARE | LOC: M LAB 13:41 | PROVIDERS: ATTEND Internal Medicine | DX: S70.01XA Contusion of right hip, initial encounter (principal); W18.30XA Fall on same level, unspecified, initial encounter; Y92.009 Unspecified place in unspecified non-institutional (private) residence as the place of occurrence of the external cause ==